=== PATIENT | male | born 1950 | race American Indian/Alaskan Native ===

== ENCOUNTER 2019-02-06 11:20 | Emergency (ER) | payer MEDICARE ==
--- NOTE | 2019-02-06 11:32 | Emergency Department Report ---
Blank Doc - Documentation Documentation: This is a 68-year-old male that presents with right knee pain. This initial assessment/diagnostic orders/clinical plan/treatment(s) is/are subject to change based on patient's health status, clinical progression and re- assessment by fellow clinical providers in the ED. Further treatment and workup at subsequent clinical providers discretion. Patient/guardians urged not to elope from the ED as their condition may be serious if not clinically assessed and managed. Initial orders include: 1- Patient sent to [facility] for further evaluation and treatment 2- xrays
--- NOTE | 2019-02-06 12:02 | XRay Report ---
XR knee 3V RT INDICATION / CLINICAL INFORMATION: Right knee pain. COMPARISON: None available. FINDINGS: BONES/JOINT(S): No acute fracture or subluxation. Mild tricompartmental DJD with a small suprapatella r joint effusion. SOFT TISSUES: No significant abnormality. ADDITIONAL FINDINGS: None. Signer Name: Jakub Pool MD Signed: 02/06/2019 11:58 AM Workstation Name: [id number]
--- NOTE | 2019-02-06 12:14 | Emergency Department Report ---
HPI - General Chief Complaint: Extremity Injury, Lower Time Seen by Provider: 02/06/19 11:31 - HPI HPI: 68-year-old male presents to the emergency department with right knee pain that started last night after he was playing with his grandc milagros and has worsened since. He denies any particular time or where he might have injured it. While he was driving home from his visit he began having the pain and it has gotten progressively worse. He denies any swelling, skin color change. He is able to ambulate but it hurts doing so. He tried some type of "pain pill" from his sister without much relief. He has a past medical history of hypertension. ED Past Medical Hx - Past Medical History Previous Medical History?: Yes Hx Hypertension: Yes Additional medical history: Hypercholesterolemia - Surgical History Past Surgical History?: No - Social History Smoking Status: Current Some Day Smoker Substance Use Type: Alcohol - Medications Home Medications: Home Medications Medication Instructions Recorded Confirmed Last Taken Type Acetaminophen/Codeine 1 tab PO Q6H PRN #20 tab 12/26/13 Unknown Rx [Acetaminophen-Codeine #3 TAB] Diclofenac Dr [Voltaren Dr] 75 mg PO Q12H #60 tablet 12/26/13 Unknown Rx Ibuprofen [Motrin 800 MG tab] 800 mg PO Q8HR PRN #20 tablet 02/06/19 Unknown Rx traMADoL [Ultram 50 MG tab] 50 mg PO Q6HR PRN #10 tablet 02/06/19 Unknown Rx ED Review of Systems ROS: Stated complaint: RT KNEE PAIN Other details as noted in HPI Comment: All other systems reviewed and negative Constitutional: denies: chills, fever Musculoskeletal: arthralgia. denies: joint swelling Skin: denies: rash, lesions Neurological: denies: numbness, paresthesias Physical Exam - Physical Exam Vital Signs: Vital Signs 02/06/19 11:30 Temperature 97.8 F Pulse Rate 61 Respiratory 18 Rate Blood Pressure 158/75 O2 Sat by Pulse 96 Oximetry Physical Exam: GENERAL: The patient is well-developed well-nourished. HENT: Normocephalic. Atraumatic. Patient has moist mucous membranes. EYES: Extraocular motions are intact. NECK: Supple. Trachea is midline. ABDOMEN: There is no abdominal distention. SKIN: Skin is warm and dry. NEURO: The patient is awake, alert, and oriented. The patient is cooperative. The patient has no focal neurologic deficits. Normal speech. MUSCULOSKELETAL: There is some tenderness to palpation to the anterior right knee. Negative anterior and posterior drawer test. No laxity with valgus or varus stress. ED Course Vital Signs 02/06/19 11:30 Temperature 97.8 F Pulse Rate 61 Respiratory 18 Rate Blood Pressure 158/75 O2 Sat by Pulse 96 Oximetry ED Medical Decision Making - Radiology Data Radiology results: image reviewed interpreted by me: X-ray of the right knee shows signs of osteoarthritis but no fracture or dislocation. - Medical Decision Making This patient resides with some right knee pain after playing with his grandchildren yesterday. Otherwise it is atraumatic. Negative drawer test and no laxity with valgus or varus stress. X-ray shows no fracture or dislocation but a small suprapatellar effusion. Patient did not want any knee immobilizer or Carlos wrap or crutches. He'll be given a referral for orthopedists and will return to the ER with any worsening of his symptoms or any acute distress. - Differential Diagnosis occult fracture, osteoarthritis, joint effusion, knee sprain Critical Care Time: No Critical care attestation.: If time is entered above; I have spent that time in minutes in the direct care of this critically ill patient, excluding procedure time. ED Disposition Clinical Impression: Right knee pain Qualifiers: Chronicity: acute Qualified Code(s): M25.561 - Pain in right knee Osteoarthritis, knee Qualifiers: Osteoarthritis type: unspecified Laterality: right Qualified Code(s): M17.11 - Unilateral primary osteoarthritis, right knee Disposition: TO HOME OR SELFCARE Is pt being admited?: No Condition: Stable Instructions: Knee Pain (ED), Arthralgia (ED) Additional Instructions: Please follow-up with your primary care physician in the next few days. I am giving you a referral for a local orthopedist, Dr. Zhu, to follow up regarding your knee pain. Return to the emergency Department with any worsening of your symptoms or any acute distress. You have been prescribed a medication that is sedating and therefore should not be taken prior to driving, working, and responsible for children and in no way should be mixed with alcohol of any quantity. Prescriptions: Ibuprofen [Motrin 800 MG tab] 800 mg PO Q8HR PRN #20 tablet PRN Reason: Pain , Severe (7-10) traMADoL [Ultram 50 MG tab] 50 mg PO Q6HR PRN #10 tablet PRN Reason: Pain Referrals: SANDRA ZHU MD [Staff Physician] - 2-3 Days Time of Disposition: 12:14
[2019-02-06 12:37] VITALS: BP 154/71
== END 2019-02-06 12:25 | disposition home or self-care (01) ==
LOC: ED 11:20
DX: M17.11 Unilateral primary osteoarthritis, right knee (principal); I10 Essential (primary) hypertension; E78.00 Pure hypercholesterolemia, unspecified; F17.200 Nicotine dependence, unspecified, uncomplicated; Z79.1 Long term (current) use of non-steroidal anti-inflammatories (NSAID); Z79.899 Other long term (current) drug therapy; Z88.5 Allergy status to narcotic agent
CPT/HCPCS: 99283